=== PATIENT | female | born 1965 | race Two or more races ===

== ENCOUNTER 2017-06-15 07:25 | Emergency (ER) | payer MEDICAID ==
[~2017-06-15] VITALS: Ht 157.5 cm; Wt 84.0 kg
[~2017-06-15 07:25] MED LIST: CLIN-80 PO; CYCL-1 PO; GUAI120015 PO; HYDR28CR14 TP; KEN0.1O TP; PRED50TA PO; PSEU-259 PO; TRIA15CR61 TOP; TRIA15CR61 TP
[2017-06-15] MEDS ORDERED: normal saline 1000ML IV soln IVB ONE (07:45)
[2017-06-15] MEDS ORDERED: propranolol 10mg tablet PO ONE (07:55)
[2017-06-15 08:05] LABS: BASOPHILS % (AUTO) 0.3 % (0-1); EOSINOPHILS # (AUTO) 0.3 X10'3 (0-0.9); EOSINOPHILS % (AUTO) 3.5 % (0-6); HEMATOCRIT 38.4 % (35.0-45.0); HEMOGLOBIN 13.2 g/dl (12.0-16.0); LYMPHOCYTES # (AUTO) 2.4 X10'3 (1.1-4.8); LYMPHOCYTES % (AUTO) 28.8 % (21-51); MEAN CORPUSCULAR HEMOGLOBIN 29.2 PG (27.0-31.0); MEAN CORPUSCULAR HGB CONC 34.4 % (33.0-36.5); MONOCYTES # (AUTO) 0.8 X10'3 (0-0.9); NEUTROPHILS # (AUTO) 4.9 X10'3 (1.8-7.7); NEUTROPHILS % (AUTO) 58.4 % (42-75); PLATELET COUNT 285 X10'3 (140-440); RED BLOOD COUNT 4.52 X10'6 (4.20-5.60); RED CELL DISTRIBUTION WIDTH 13.4 % (11.5-14.5); WHITE BLOOD COUNT 8.4 X10'3 (4.5-11.0)
[2017-06-15 08:26] LABS: ALBUMIN 3.6 G/DL (3.4-5.0); ANION GAP 11 (8-16); BILIRUBIN,TOTAL 0.7 MG/DL (0.1-1.0); BLOOD UREA NITROGEN 12 MG/DL (7-18); BUN/CREATININE RATIO 20.7 (6.6-38.0); CALCIUM 9.2 MG/DL (8.5-10.1); CHLORIDE 105 MMOL/L (99-107); CREATININE 0.58 MG/DL (0.40-0.90); GLUCOSE 121 MG/DL (70-104); POTASSIUM 3.3 MMOL/L (3.5-5.1); SODIUM 143 MMOL/L (135-145); TOTAL CARBON DIOXIDE 27.5 MMOL/L (24-32); TOTAL PROTEIN 8.1 G/DL (6.4-8.2); eGFR > 90 ML/MIN
[2017-06-15 08:27] LABS: ALANINE AMINOTRANSFERASE 29 U/L (12-78); ALBUMIN/GLOBULIN RATIO 0.8 (1.1-1.5); ALKALINE PHOSPHATASE 195 IU/L (46-116); ASPARTATE AMINO TRANSFERASE 23 U/L (10-37)
[2017-06-15] MEDS ORDERED: potassium Cl 20 mEq SR tablet PO STA (08:34)
[2017-06-15] MEDS ORDERED: METH10TA6 PO (09:47)
[2017-06-15] MEDS ORDERED: PROP10TA10 PO (09:47)
[2017-06-15 10:36] VITALS: BP 142/67
== END 2017-06-15 10:38 | disposition home or self-care (01) ==
LOC: ER 07:26
DX: E05.90 Thyrotoxicosis, unspecified without thyrotoxic crisis or storm (principal); F17.210 Nicotine dependence, cigarettes, uncomplicated; Z88.2 Allergy status to sulfonamides; Z90.49 Acquired absence of other specified parts of digestive tract; Z79.899 Other long term (current) drug therapy
CPT/HCPCS: 36415; 80053; 83735; 83880; 84443; 84484; 85025; 96360; 99284; J7030

== ENCOUNTER 2018-02-20 12:43 | Emergency (ER) | payer MEDICAID, OTHER ==
[~2018-02-20] VITALS: Ht 157.5 cm; Wt 72.7 kg
[~2018-02-20 12:43] MED LIST changes: -CLIN-80 PO; +CLIN300C85 PO; +METH10TA6 PO
[2018-02-20 13:40] VITALS: BP 145/71
[2018-02-20] MEDS ORDERED: ketorolac tromethamine 15mg/ml inj. IM ONE (14:10)
[2018-02-20] MEDS ORDERED: NAPR-56 PO (14:11)
[2018-02-20] MEDS ORDERED: METH-360 PO (14:11)
== END 2018-02-20 14:29 | disposition home or self-care (01) ==
LOC: ER 12:46
DX: M54.41 Lumbago with sciatica, right side (principal); G43.909 Migraine, unspecified, not intractable, without status migrainosus; Z90.49 Acquired absence of other specified parts of digestive tract; Z98.890 Other specified postprocedural states; Z88.2 Allergy status to sulfonamides; Z79.899 Other long term (current) drug therapy; X50.0XXA Overexertion from strenuous movement or load, initial encounter; Y93.89 Activity, other specified; Y92.89 Other specified places as the place of occurrence of the external cause; Y99.9 Unspecified external cause status
CPT/HCPCS: 96372; 99283; J1885

== ENCOUNTER 2018-03-10 09:38 | Emergency (ER) | payer OTHER ==
[~2018-03-10] VITALS: Ht 157.5 cm; Wt 72.2 kg
[~2018-03-10 09:38] MED LIST changes: +METH-360 PO; +NAPR-56 PO
--- NOTE | 2018-03-10 10:16 | NUR ---
introduced self to pt
[2018-03-10] MEDS ORDERED: ketorolac trometh inj. 60 MG/2 ML VIAL IM ONE (11:15)
[2018-03-10 11:22] VITALS: BP 128/86
== END 2018-03-10 11:42 | disposition home or self-care (01) ==
LOC: ER 09:39
DX: M53.3 Sacrococcygeal disorders, not elsewhere classified (principal); Z90.49 Acquired absence of other specified parts of digestive tract; Z98.890 Other specified postprocedural states; Z88.2 Allergy status to sulfonamides; Z79.2 Long term (current) use of antibiotics; Z79.899 Other long term (current) drug therapy
CPT/HCPCS: 96372; 99283; J1885

== ENCOUNTER 2018-03-28 07:11 | Outpatient (CLI) | payer OTHER ==
[~2018-03-28 07:11] MED LIST changes: -NAPR-56 PO
[2018-03-28 07:39] LABS: BASOPHILS % (AUTO) 0.6 % (0-1); EOSINOPHILS # (AUTO) 0.5 X10'3 (0-0.9); HEMATOCRIT 38.4 % (35.0-45.0); HEMOGLOBIN 12.7 g/dl (12.0-16.0); LYMPHOCYTES # (AUTO) 2.5 X10'3 (1.1-4.8); LYMPHOCYTES % (AUTO) 29.1 % (21-51); MEAN CORPUSCULAR HEMOGLOBIN 28.2 PG (27.0-31.0); MEAN CORPUSCULAR HGB CONC 33.1 % (33.0-36.5); MEAN CORPUSCULAR VOLUME 85.1 FL (78-98); MONOCYTES # (AUTO) 0.7 X10'3 (0-0.9); NEUTROPHILS # (AUTO) 4.8 X10'3 (1.8-7.7); NEUTROPHILS % (AUTO) 56.3 % (42-75); PLATELET COUNT 320 X10'3 (140-440); RED BLOOD COUNT 4.51 X10'6 (4.20-5.60); RED CELL DISTRIBUTION WIDTH 13.9 % (11.5-14.5); WHITE BLOOD COUNT 8.6 X10'3 (4.5-11.0)
[2018-03-28 07:41] LABS: CLARITY,URINE CLEAR (Clear); COLOR,URINE YELLOW (Yellow); GLUCOSE, URINE NEGATIVE (Neg); KETONES,URINE TRACE mg/dl (Neg); LEUKOCYTE ESTERASE ,URINE NEGATIVE (Neg); NITRITES, URINE NEGATIVE (Neg); OCCULT BLOOD,URINE NEGATIVE (Neg); PROTEIN,URINE NEGATIVE (Neg); UROBILINOGEN,URINE 0.2 E.U/dL (0.2-1.0)
[2018-03-28 07:44] LABS: UA COLLECTION TYPE CLN CATCH MIDSTREAM
[2018-03-28 08:05] LABS: ALANINE AMINOTRANSFERASE 27 U/L (12-78); ALBUMIN 3.9 G/DL (3.4-5.0); ALKALINE PHOSPHATASE 200 IU/L (46-116); ANION GAP 13 (8-16); ASPARTATE AMINO TRANSFERASE 28 U/L (10-37); BILIRUBIN,TOTAL 0.8 MG/DL (0.1-1.0); BLOOD UREA NITROGEN 16 MG/DL (7-18); BUN/CREATININE RATIO 33.3 (6.6-38.0); C-REACTIVE PROTEIN 0.21 MG/DL (0.0-0.5); CALCIUM 9.1 MG/DL (8.5-10.1); CHLORIDE 104 MMOL/L (99-107); CHOL/HDL RATIO 3.4 (0.00-4.99); CHOLESTEROL 158 MG/DL (0-200); CREATININE 0.48 MG/DL (0.40-0.90); GLUCOSE 100 MG/DL (70-104); HDL CHOLESTEROL 46 MG/DL (35-60); LDL CHOLESTEROL 97 MG/DL (50-100); PHOSPHORUS 4.3 MG/DL (2.3-4.5); POTASSIUM 3.6 MMOL/L (3.5-5.1); SODIUM 141 MMOL/L (135-145); TOTAL CARBON DIOXIDE 24.4 MMOL/L (24-32); TOTAL PROTEIN 7.9 G/DL (6.4-8.2); TRIGLYCERIDES 130 MG/DL (20-135); eGFR > 90 ML/MIN
[2018-03-28 08:07] LABS: TOTAL PROTEIN,URINE RANDOM 20.2 MG/DL
[2018-03-29 08:17] LABS: THYROID PEROXIDASE AB 15 IU/mL (0-34)
[2018-03-29 15:11] LABS: ANTITHYROGLOBULIN AB <1.0 IU/mL (0.0-0.9)
== END 2018-03-28 23:59 | disposition home or self-care (01) ==
LOC: LAB 07:11
PROVIDERS: ATTEND Family Medicine
DX: E05.00 Thyrotoxicosis with diffuse goiter without thyrotoxic crisis or storm (principal)
CPT/HCPCS: 36415; 80053; 80061; 81003; 82570; 84100; 84156; 84432; 84439; 84443; 85025; 85651; 86140; 86376; 86800

== ENCOUNTER 2018-12-05 06:51 | Outpatient (CLI) | payer OTHER ==
[~2018-12-05 06:51] MED LIST changes: +CLIN-96 PO; -CLIN300C85 PO
== END 2018-12-05 23:59 | disposition home or self-care (01) ==
LOC: RAD 06:51
PROVIDERS: ATTEND Family Medicine
DX: S39.012D Strain of muscle, fascia and tendon of lower back, subsequent encounter (principal); M54.31 Sciatica, right side; X58.XXXD Exposure to other specified factors, subsequent encounter
CPT/HCPCS: 72110

== ENCOUNTER 2019-01-28 08:30 | Outpatient (CLI) | payer OTHER ==
[~2019-01-28 08:30] MED LIST changes: +CLIN-90 PO; -CLIN-96 PO
== END 2019-01-28 23:59 | disposition home or self-care (01) ==
LOC: RAD 08:30
PROVIDERS: ATTEND Family Medicine
DX: M51.36 Other intervertebral disc degeneration, lumbar region (principal); F17.200 Nicotine dependence, unspecified, uncomplicated
CPT/HCPCS: 72148

== ENCOUNTER 2019-03-09 11:57 | Emergency (ER) | payer OTHER ==
[~2019-03-09] VITALS: Ht 157.5 cm; Wt 90.0 kg
[2019-03-09 12:02] VITALS: BP 141/72
[2019-03-09] MEDS ORDERED: mag hydrox/Alum hydrox/simeth 30ml oral suspension PO ONE (12:30)
[2019-03-09] MEDS ORDERED: LIDOcaine Viscous 15ml cup MM ONE (12:30)
[2019-03-09] MEDS ORDERED: PANT-47 PO (13:40)
[2019-03-09] MEDS ORDERED: famotidine 20mg tablet PO ONE (13:40)
[2019-03-09] MEDS ORDERED: famotidine 10mg tablet PO ONE (13:50)
[2019-03-10] MEDS ORDERED: pantoprazole 40mg Tablet.DR PO SCH (07:30)
== END 2019-03-09 13:47 | disposition home or self-care (01) ==
LOC: ER 11:57 → MERGE 11:57 → ER 13:47
DX: K21.9 Gastro-esophageal reflux disease without esophagitis (principal); F17.200 Nicotine dependence, unspecified, uncomplicated; Z88.1 Allergy status to other antibiotic agents; Z79.899 Other long term (current) drug therapy
CPT/HCPCS: 93005; 99283

== ENCOUNTER 2019-04-10 14:43 | Outpatient (CLI) | payer OTHER ==
[~2019-04-10 14:43] MED LIST changes: +PANT-47 PO
[2019-04-10 15:40] LABS: BASOPHILS # (AUTO) 0.1 X10'3 (0-0.2); BASOPHILS % (AUTO) 0.6 % (0-1); EOSINOPHILS # (AUTO) 0.5 X10'3 (0-0.9); EOSINOPHILS % (AUTO) 5.1 % (0-6); HEMATOCRIT 38.8 % (35.0-45.0); HEMOGLOBIN 12.8 g/dl (12.0-16.0); LYMPHOCYTES # (AUTO) 3.3 X10'3 (1.1-4.8); LYMPHOCYTES % (AUTO) 36.9 % (21-51); MEAN CORPUSCULAR HEMOGLOBIN 29.1 PG (27.0-31.0); MEAN CORPUSCULAR VOLUME 88.2 FL (78-98); MEAN PLATELET VOLUME 9.4 FL (7.4-10.4); MONOCYTES # (AUTO) 0.7 X10'3 (0-0.9); NEUTROPHILS # (AUTO) 4.4 X10'3 (1.8-7.7); NEUTROPHILS % (AUTO) 49.4 % (42-75); PLATELET COUNT 267 X10'3 (140-440); RED BLOOD COUNT 4.39 X10'6 (4.20-5.60); RED CELL DISTRIBUTION WIDTH 13.5 % (11.5-14.5)
[2019-04-10 15:49] LABS: TOTAL PROTEIN,URINE RANDOM 23.7 MG/DL
[2019-04-10 15:53] LABS: ALANINE AMINOTRANSFERASE 25 U/L (12-78); ALBUMIN 3.9 G/DL (3.4-5.0); ALBUMIN/GLOBULIN RATIO 1.1 (1.1-1.5); ALKALINE PHOSPHATASE 175 IU/L (46-116); ANION GAP 8 (8-16); ASPARTATE AMINO TRANSFERASE 16 U/L (10-37); BILIRUBIN,TOTAL 0.5 MG/DL (0.1-1.0); BLOOD UREA NITROGEN 22 MG/DL (7-18); BUN/CREATININE RATIO 33.8 (6.6-38.0); CALCIUM 8.7 MG/DL (8.5-10.1); CHLORIDE 107 MMOL/L (99-107); CHOL/HDL RATIO 3.7 (0.00-4.99); CHOLESTEROL 180 MG/DL (0-200); CREATININE 0.65 MG/DL (0.40-0.90); GLUCOSE 122 MG/DL (70-104); HDL CHOLESTEROL 49 MG/DL (35-60); LDL CHOLESTEROL 113 MG/DL (50-100); PHOSPHORUS 4.3 MG/DL (2.3-4.5); POTASSIUM 3.5 MMOL/L (3.5-5.1); SODIUM 142 MMOL/L (135-145); TOTAL CARBON DIOXIDE 26.7 MMOL/L (24-32); TOTAL PROTEIN 7.4 G/DL (6.4-8.2); TRIGLYCERIDES 143 MG/DL (20-135); eGFR > 90 ML/MIN
[2019-04-10 15:54] LABS: C-REACTIVE PROTEIN < 0.05 MG/DL (0.0-0.5)
== END 2019-04-10 23:59 | disposition home or self-care (01) ==
LOC: LAB 14:43
PROVIDERS: ATTEND Family Medicine
DX: E05.00 Thyrotoxicosis with diffuse goiter without thyrotoxic crisis or storm (principal); R59.0 Localized enlarged lymph nodes; L30.9 Dermatitis, unspecified; Z86.39 Personal history of other endocrine, nutritional and metabolic disease
CPT/HCPCS: 36415; 80053; 80061; 82570; 84100; 84156; 84439; 84443; 85025; 85651; 86140

== ENCOUNTER 2019-05-08 04:53 | Emergency (ER) | payer OTHER ==
[~2019-05-08] VITALS: Ht 154.9 cm; Wt 78.9 kg
[2019-05-08 06:22] VITALS: BP 135/73
== END 2019-05-08 07:15 | disposition home or self-care (01) ==
LOC: ER 04:54
DX: S39.012A Strain of muscle, fascia and tendon of lower back, initial encounter (principal); S33.5XXA Sprain of ligaments of lumbar spine, initial encounter; G43.909 Migraine, unspecified, not intractable, without status migrainosus; G89.29 Other chronic pain; Z90.49 Acquired absence of other specified parts of digestive tract; Z90.89 Acquired absence of other organs; Z98.890 Other specified postprocedural states; Z72.89 Other problems related to lifestyle; Z88.2 Allergy status to sulfonamides; Z79.899 Other long term (current) drug therapy; X58.XXXA Exposure to other specified factors, initial encounter; Y93.89 Activity, other specified; Y92.89 Other specified places as the place of occurrence of the external cause; Y99.8 Other external cause status
CPT/HCPCS: 99281

== ENCOUNTER 2019-07-29 07:49 | Day surgery (SDC) | payer OTHER ==
[~2019-07-29] VITALS: Ht 157.5 cm; Wt 81.8 kg
[~2019-07-29 07:49] MED LIST changes: -CLIN-90 PO; +CLIN-97 PO
[2019-07-29 07:54] VITALS: BP 122/72
[2019-07-29] MEDS ORDERED: HYDR28CR14 TOP (08:11)
[2019-07-29] MEDS ORDERED: CYCL-394 PO (08:11)
[2019-07-29] MEDS ORDERED: METH10TA6 PO (08:13)
[2019-07-29] MEDS ORDERED: METH-360 PO (08:14)
[2019-07-29] MEDS ORDERED: fentaNYL/PF 50MCG/1 ML 2ML syringe ONE (08:15)
[2019-07-29] MEDS ORDERED: MIDAZolam 5mg/5ml vial ONE (08:15)
[2019-07-29] MEDS ORDERED: PANT-47 PO (08:15)
[2019-07-29] MEDS ORDERED: KEN40I IM (08:17)
[2019-07-29] MEDS ORDERED: NAPR-996 PO (08:20)
[2019-07-29 10:37] VITALS: BP 114/63
[2019-07-29 10:47] VITALS: BP 108/66
[2019-07-29 10:57] VITALS: BP 103/72
[2019-07-29 11:07] VITALS: BP 115/68
== END 2019-07-29 11:10 | disposition home or self-care (01) ==
LOC: GI LAB 07:49
PROVIDERS: ATTEND Internal Medicine Gastroenterology
DX: Z12.11 Encounter for screening for malignant neoplasm of colon (principal); K64.8 Other hemorrhoids
CPT/HCPCS: 45378; 99152; J2250; J3010; J7040; 99153; A4620

== ENCOUNTER 2019-08-05 13:44 | Outpatient (CLI) | payer OTHER ==
[~2019-08-05 13:44] MED LIST changes: -CLIN-97 PO; -CYCL-1 PO; +CYCL-394 PO; -GUAI120015 PO; +HYDR28CR14 TOP; -HYDR28CR14 TP; -KEN0.1O TP; +KEN40I IM; +NAPR-996 PO; -PRED50TA PO; -PSEU-259 PO; -TRIA15CR61 TOP; -TRIA15CR61 TP
== END 2019-08-05 23:59 | disposition home or self-care (01) ==
LOC: VAS 13:44
PROVIDERS: ATTEND Family Medicine
DX: M71.22 Synovial cyst of popliteal space [Baker], left knee (principal); M22.42 Chondromalacia patellae, left knee; R60.9 Edema, unspecified; Z87.828 Personal history of other (healed) physical injury and trauma
CPT/HCPCS: 93970

== ENCOUNTER 2019-12-10 13:17 | Emergency (ER) | payer OTHER ==
[~2019-12-10] VITALS: Ht 157.5 cm; Wt 83.0 kg
[2019-12-10 13:43] VITALS: BP 144/73
--- NOTE | 2019-12-10 15:41 | NUR ---
Called patient; started to leave a message then patient answered the phone. Patient stated that she was still having pain, but was concerned regarding employment and previous visits for the same. So she decided to leave. I notified her that we would be happy to see her again if she still felt she needed to be seen. Patient agreed and conversation ended.
== END 2019-12-10 16:17 | disposition left against medical advice (07) ==
LOC: ER 13:19
DX: M54.5 Low back pain (principal); Z53.21 Procedure and treatment not carried out due to patient leaving prior to being seen by health care provider

== ENCOUNTER → 2020-03-11 | Emergency (ER) | payer OTHER ==
[~2020-03-11] VITALS: Ht 157.5 cm; Wt 81.8 kg
== END | disposition home or self-care (01) ==
LOC: ER 16:35
DX: T88.1XXA Other complications following immunization, not elsewhere classified, initial encounter (principal); R05 Cough; R50.9 Fever, unspecified; M25.512 Pain in left shoulder; M79.602 Pain in left arm; M54.2 Cervicalgia; G43.909 Migraine, unspecified, not intractable, without status migrainosus; G89.29 Other chronic pain; Z90.49 Acquired absence of other specified parts of digestive tract; Z98.890 Other specified postprocedural states; Z90.89 Acquired absence of other organs; Z72.89 Other problems related to lifestyle; Z88.2 Allergy status to sulfonamides; Z79.2 Long term (current) use of antibiotics; Z79.899 Other long term (current) drug therapy
CPT/HCPCS: 99282

== ENCOUNTER 2020-07-24 16:33 | Emergency (ER) | payer BC, OTHER ==
[~2020-07-24] VITALS: Ht 154.9 cm; Wt 87.7 kg
[2020-07-24] MEDS ORDERED: PRED10TA23 PO (16:58)
[2020-07-24] MEDS ORDERED: ALBU8.5H8 INH (16:58)
[2020-07-24 17:37] VITALS: BP 107/69
== END 2020-07-24 18:26 | disposition home or self-care (01) ==
LOC: ER 16:33
DX: T78.40XA Allergy, unspecified, initial encounter (principal); R06.02 Shortness of breath; G43.909 Migraine, unspecified, not intractable, without status migrainosus; G89.29 Other chronic pain; M54.9 Dorsalgia, unspecified; Z88.2 Allergy status to sulfonamides; Z79.899 Other long term (current) drug therapy
CPT/HCPCS: 71045; 99283

== ENCOUNTER → 2020-12-02 | Outpatient (CLI) | payer BC, OTHER ==
[~2020-12-02] MED LIST changes: +ALBU8.5H17 INH
== END | disposition home or self-care (01) ==
LOC: RAD 10:04
DX: Z11.1 Encounter for screening for respiratory tuberculosis (principal)
CPT/HCPCS: 71046

== ENCOUNTER 2021-09-20 04:56 | Emergency (ER) | payer BC, OTHER ==
[~2021-09-20] VITALS: Ht 157.5 cm; Wt 75.9 kg
[~2021-09-20 04:56] MED LIST changes: +METH-375 PO; -METH10TA6 PO
[2021-09-20 05:02] VITALS: BP 138/77
[2021-09-20] MEDS ORDERED: CIPR2.5D21 RIGHTEYE (07:07)
== END 2021-09-20 09:42 | disposition home or self-care (01) ==
LOC: ER 04:58
DX: H10.9 Unspecified conjunctivitis (principal); G89.29 Other chronic pain; G43.909 Migraine, unspecified, not intractable, without status migrainosus; Z88.2 Allergy status to sulfonamides; Z79.899 Other long term (current) drug therapy; Z79.2 Long term (current) use of antibiotics
CPT/HCPCS: 99283

== ENCOUNTER 2021-12-12 04:48 | Emergency (ER) | payer BC, MEDICAID ==
[~2021-12-12] VITALS: Ht 157.5 cm; Wt 71.7 kg
[2021-12-12 05:05] VITALS: BP 143/78
[2021-12-12 06:42] LABS: CLARITY,URINE SLIGHTLY CLOUDY (Clear); COLOR,URINE YELLOW (Yellow); GLUCOSE, URINE NEGATIVE (Neg); KETONES,URINE TRACE mg/dl (Neg); LEUKOCYTE ESTERASE ,URINE NEGATIVE (Neg); NITRITES, URINE POSITIVE (Neg); OCCULT BLOOD,URINE NEGATIVE (Neg); PH,URINE 5.5 (4.8-8.0); PROTEIN,URINE NEGATIVE (Neg); UROBILINOGEN,URINE 0.2 E.U/dL (0.2-1.0)
[2021-12-12 06:45] LABS: UA COLLECTION TYPE NON-SPECIFIED
[2021-12-12 06:46] LABS: BACTERIA,URINE 4+ /HPF (Neg); CAL OXALATE CRYSTALS 4+ /HPF (NEGATIVE); MUCUS STRANDS MANY /LPF (Neg); RBC,URINE NONE SEEN /HPF (0-2); SQUAMOUS EPITHELIAL CELL,UR FEW /LPF (FEW)
[2021-12-12 07:21] LABS: BASOPHILS % (AUTO) 0.2 % (0-1); EOSINOPHILS # (AUTO) 0.3 X10'3 (0-0.9); HEMOGLOBIN 13.8 g/dl (12.0-16.0); LYMPHOCYTES # (AUTO) 2.4 X10'3 (1.1-4.8); LYMPHOCYTES % (AUTO) 21.4 % (21-51); MEAN CORPUSCULAR HEMOGLOBIN 28.8 PG (27.0-31.0); MEAN CORPUSCULAR HGB CONC 33.7 g/dL (33.0-36.5); MEAN CORPUSCULAR VOLUME 85.5 FL (78-98); MEAN PLATELET VOLUME 9.2 FL (7.4-10.4); MONOCYTES # (AUTO) 1.1 X10'3 (0-0.9); MONOCYTES % (AUTO) 9.6 % (2-12); NEUTROPHILS # (AUTO) 7.5 X10'3 (1.8-7.7); NEUTROPHILS % (AUTO) 65.8 % (42-75); PLATELET COUNT 272 X10'3 (140-440); RED CELL DISTRIBUTION WIDTH 13.3 % (11.5-14.5); WHITE BLOOD COUNT 11.4 X10'3 (4.5-11.0)
[2021-12-12 07:36] LABS: ALANINE AMINOTRANSFERASE 21 U/L (12-78); ALBUMIN 3.5 G/DL (3.4-5.0); ALBUMIN/GLOBULIN RATIO 0.8 (1.1-1.5); ALKALINE PHOSPHATASE 160 IU/L (46-116); ANION GAP 14 (8-16); ASPARTATE AMINO TRANSFERASE 20 U/L (10-37); BILIRUBIN,TOTAL 0.7 MG/DL (0.1-1.0); BLOOD UREA NITROGEN 16 MG/DL (7-18); BUN/CREATININE RATIO 29.6 (6.6-38.0); CALCIUM 9.4 MG/DL (8.5-10.1); CHLORIDE 106 MMOL/L (99-107); CREATININE 0.54 MG/DL (0.40-0.90); GLUCOSE 118 MG/DL (70-104); LIPASE 88 U/L (73-393); POTASSIUM 3.5 MMOL/L (3.5-5.1); SODIUM 142 MMOL/L (135-145); TOTAL CARBON DIOXIDE 22.2 MMOL/L (24-32); TOTAL PROTEIN 7.7 G/DL (6.4-8.2); eGFR > 90 ML/MIN
[2021-12-12] MEDS ORDERED: AMOX-115 PO (09:03)
== END 2021-12-12 10:38 | disposition home or self-care (01) ==
LOC: ER 04:48
DX: N39.0 Urinary tract infection, site not specified (principal); G43.909 Migraine, unspecified, not intractable, without status migrainosus; F17.200 Nicotine dependence, unspecified, uncomplicated; G89.29 Other chronic pain; M54.9 Dorsalgia, unspecified; Z90.49 Acquired absence of other specified parts of digestive tract; Z88.2 Allergy status to sulfonamides; Z79.899 Other long term (current) drug therapy
CPT/HCPCS: 36415; 80053; 81001; 83690; 85025; 87077; 87088; 87186; 99283

== ENCOUNTER 2023-10-08 08:40 | Emergency (ER) | payer MEDICAID, OTHER ==
[~2023-10-08] VITALS: Ht 154.9 cm; Wt 59.5 kg
[2023-10-08 08:43] VITALS: TEMP 98.1
[2023-10-08] MEDS: acetaminophen 325mg tablet PO ONE (09:37)
[2023-10-08] MEDS: ibuprofen 200mg tablet PO ONE (09:37)
[2023-10-08 09:43] VITALS: BP 127/94; PULSE 78; RESP 18; O2SAT 98
== END 2023-10-08 09:45 | disposition home or self-care (01) ==
LOC: ER 08:41
DX: S50.01XA Contusion of right elbow, initial encounter (principal); M25.561 Pain in right knee; G43.909 Migraine, unspecified, not intractable, without status migrainosus; G89.29 Other chronic pain; M54.9 Dorsalgia, unspecified; Z88.2 Allergy status to sulfonamides; Z79.899 Other long term (current) drug therapy; Z90.49 Acquired absence of other specified parts of digestive tract; Z98.890 Other specified postprocedural states; W19.XXXA Unspecified fall, initial encounter; Y93.89 Activity, other specified; Y92.89 Other specified places as the place of occurrence of the external cause; Y99.8 Other external cause status
CPT/HCPCS: 73070; 99283

== ENCOUNTER 2023-10-13 18:46 | Emergency (ER) | payer BC, OTHER ==
[~2023-10-13] VITALS: Ht 157.5 cm; Wt 59.3 kg
[2023-10-13 19:48] VITALS: BP 118/79; PULSE 105; TEMP 98; O2SAT 98
[2023-10-13 19:59] VITALS: RESP 17
[2023-10-13] MEDS ORDERED: CYCL-394 PO (20:21)
[2023-10-13] MEDS ORDERED: NAPR-56 PO (20:21)
== END 2023-10-13 21:08 | disposition home or self-care (01) ==
LOC: ER 18:48
DX: R07.81 Pleurodynia (principal); G43.909 Migraine, unspecified, not intractable, without status migrainosus; G89.29 Other chronic pain; M54.9 Dorsalgia, unspecified; Z88.2 Allergy status to sulfonamides; Z79.899 Other long term (current) drug therapy; Z90.49 Acquired absence of other specified parts of digestive tract; Z98.890 Other specified postprocedural states
CPT/HCPCS: 71101; 93005; 99284